=== PATIENT | male | born 1945 | race Caucasian/White ===

== ENCOUNTER 2020-12-14 00:40 | Inpatient (IN) ==
[2020-12-14] MEDS ORDERED: SODIUM CHLORIDE 0.9% 500 ML IV STA (01:10)
[2020-12-14] MEDS ORDERED: PANTOPRAZOLE 40 MG VIAL IV STA (01:10)
[2020-12-14] MEDS ORDERED: ONDANSETRON 4 MG/2 ML VIAL IV STA (01:10)
[2020-12-14 01:43] LABS: Basophils % 0.3 % (0.0-0.8); Eosinophils % 0.2 % (0.00-10.9); Hematocrit 32.7 VOL% (42.0-52.0); Hemoglobin 10.4 GM/DL (14.0-18.0); Immature Granulocytes % 0.8 %; Immature Granulocytes Absolute 0.08 #; Lymphocytes # 1.7 10*3/uL (1.4-4.0); Lymphocytes % 16.6 % (21.2-54.2); Mean Corpuscular HGB Conc 31.8 GM/DL (32-36); Mean Corpuscular Volume 92.6 FL (87-102); Mean Platelet Volume 10.2 FL (9.6-12.0); Monocytes % 4.1 % (1.7-12.7); Platelet Count 166 T/CUMM (130-400); Red Blood Count 3.53 MC/CUMM (3.8-5.5); Red Cell Distribution Width 13.2 % (9.3-17.3)
[2020-12-14 01:55] LABS: INR 1.1; PT Patient Result 11.7 SECS (9.8-11.9)
[2020-12-14 02:07] LABS: Bilirubin,Total 0.4 MG/DL (0.2-1.0); Calcium 8.3 MG/DL (8.5-10.1); Osmolality,Calculated 287.3 MOS/KG (273-304); Potassium 5.5 MMOL/L (3.5-5.1); Total Protein 5.2 G/DL (6.4-8.2)
[2020-12-14] MEDS ORDERED: GLUCAGON 1 MG VIAL IM PRN (03:51)
[2020-12-14] MEDS ORDERED: DEXTROSE 50% 25 GM/50 ML VIAL IV PRN (03:51)
[2020-12-14] MEDS ORDERED: ONDANSETRON 4 MG/2 ML VIAL IV PRN (03:51)
[2020-12-14] MEDS: PANTOPRAZOLE INJ 200 MG in SODIUM CHLORIDE 0.9% 250 ML IV SCH (04:46)
[2020-12-14] MEDS: SODIUM CHLORIDE 0.9% 1,000 ML IV SCH ×2 (07:00→15:19)
[2020-12-14 07:15] LABS: Hemoglobin 8.7 GM/DL (14.0-18.0)
[2020-12-14 07:26] LABS: INR 1.1; PT Patient Result 12.3 SECS (9.8-11.9); Partial Thromboplastin Time 23.3 SECS (23.9-33.8)
[2020-12-14 07:39] LABS: Osmolality,Calculated 292.3 MOS/KG (273-304); Potassium 5.5 MMOL/L (3.5-5.1)
[2020-12-14] MEDS: FINASTERIDE 5 MG TABLET PO SCH (09:25)
[2020-12-14] MEDS ORDERED: SODIUM CHLORIDE 0.9% 1,000 ML IV PRN ×2 (09:36→16:08)
[2020-12-14 10:00] LABS: Hemoglobin 8.5 GM/DL (14.0-18.0)
[2020-12-14] MEDS ORDERED: SODIUM CHLORIDE 0.9% 500 ML IV ONE (13:40)
[2020-12-14 13:57] LABS: Hematocrit 25.6 VOL% (42.0-52.0)
[2020-12-14] MEDS: GABAPENTIN 100 MG CAPSULE PO SCH ×2 (15:17→21:01)
[2020-12-14 16:16] LABS: Hematocrit 23.1 VOL% (42.0-52.0); Hemoglobin 7.6 GM/DL (14.0-18.0)
[2020-12-14] MEDS: ALBUTEROL 1.25 MG/3 ML NEB RESP TX PRN (17:45)
[2020-12-14] MEDS: BACLOFEN 10 MG TABLET PO SCH ×2 (17:55→21:00)
[2020-12-14] MEDS: TAMSULOSIN 0.4 MG CAPSULE PO SCH (21:00)
[2020-12-14] MEDS: FLUTICASONE 110 MCG/PUFF INHALER 12 GM INH SCH (21:00)
[2020-12-14] MEDS: rOPINIRole 1 MG TABLET PO SCH (21:01)
[2020-12-14 22:55] LABS: Hematocrit 23.2 VOL% (42.0-52.0); Hemoglobin 7.3 GM/DL (14.0-18.0)
[2020-12-15] MEDS: SODIUM CHLORIDE 0.9% 1,000 ML IV SCH ×4 (01:40→22:59)
[2020-12-15 04:19] LABS: PT Patient Result 11.4 SECS (9.8-11.9)
[2020-12-15] MEDS: PANTOPRAZOLE INJ 200 MG in SODIUM CHLORIDE 0.9% 250 ML IV SCH (07:11)
[2020-12-15 07:51] LABS: Hematocrit 23.8 VOL% (42.0-52.0); Hemoglobin 7.6 GM/DL (14.0-18.0)
[2020-12-15 08:29] LABS: Hematocrit 24.3 VOL% (42.0-52.0)
[2020-12-15 08:46] LABS: Calcium 8.1 MG/DL (8.5-10.1); Osmolality,Calculated 289.3 MOS/KG (273-304); Potassium 4.5 MMOL/L (3.5-5.1)
[2020-12-15] MEDS: LACTATED RINGERS 1,000 ML IV SCH (10:39)
[2020-12-15] MEDS: BACLOFEN 10 MG TABLET PO SCH ×4 (11:13→21:21)
[2020-12-15] MEDS: FINASTERIDE 5 MG TABLET PO SCH (11:13)
[2020-12-15] MEDS: ATORVASTATIN 40 MG TABLET PO SCH (11:13)
[2020-12-15] MEDS: GABAPENTIN 100 MG CAPSULE PO SCH ×3 (11:13→21:21)
[2020-12-15] MEDS: TAMSULOSIN 0.4 MG CAPSULE PO SCH ×2 (11:13→21:21)
[2020-12-15] MEDS: FLUTICASONE 110 MCG/PUFF INHALER 12 GM INH SCH ×2 (11:15→21:21)
[2020-12-15] MEDS ORDERED: LIDOCAINE 2% 5 ML VIAL ONE (11:42)
[2020-12-15] MEDS ORDERED: propofoL 200 MG/20 ML VIAL IV ONE ×3 (11:42→12:02)
[2020-12-15] MEDS ORDERED: EPINEPHrine 1 MG/ML VIAL ONE (12:23)
[2020-12-15 13:50] LABS: Hematocrit 25.2 VOL% (42.0-52.0)
[2020-12-15] MEDS: ALBUTEROL 1.25 MG/3 ML NEB RESP TX PRN (17:11)
[2020-12-15 19:58] LABS: Hemoglobin 7.4 GM/DL (14.0-18.0)
[2020-12-15] MEDS: rOPINIRole 1 MG TABLET PO SCH (21:21)
[2020-12-16 05:31] LABS: PT Patient Result 11.1 SECS (9.8-11.9)
[2020-12-16] MEDS: SODIUM CHLORIDE 0.9% 1,000 ML IV SCH ×2 (06:29→12:18)
[2020-12-16 07:18] LABS: Basophils % 0.2 % (0.0-0.8); Eosinophils # 0.1 10*3/uL (0.0-0.87); Eosinophils % 1.3 % (0.00-10.9); Hematocrit 22.2 VOL% (42.0-52.0); Hemoglobin 7.1 GM/DL (14.0-18.0); Immature Granulocytes % 0.8 %; Immature Granulocytes Absolute 0.07 #; Lymphocytes # 2.8 10*3/uL (1.4-4.0); Lymphocytes % 32.8 % (21.2-54.2); Mean Corpuscular Volume 92.1 FL (87-102); Mean Platelet Volume 10.9 FL (9.6-12.0); Monocytes % 7.3 % (1.7-12.7); Neutrophils % 57.6 % (38.7-73.9); Platelet Count 127 T/CUMM (130-400); Red Blood Count 2.41 MC/CUMM (3.8-5.5); Red Cell Distribution Width 15.9 % (9.3-17.3); White Blood Count 8.4 T/CUMM (4-12)
[2020-12-16 07:46] LABS: Albumin 2.9 G/DL (3.4-5.0); Bilirubin,Total 0.5 MG/DL (0.2-1.0); Calcium 8.1 MG/DL (8.5-10.1); Osmolality,Calculated 294.4 MOS/KG (273-304); Potassium 4.2 MMOL/L (3.5-5.1); Total Protein 5.1 G/DL (6.4-8.2)
[2020-12-16] MEDS: PANTOPRAZOLE 40 MG VIAL IV SCH ×2 (08:31→21:13)
[2020-12-16] MEDS: GABAPENTIN 100 MG CAPSULE PO SCH ×3 (08:32→21:13)
[2020-12-16] MEDS: TAMSULOSIN 0.4 MG CAPSULE PO SCH ×2 (08:32→21:12)
[2020-12-16] MEDS: BACLOFEN 10 MG TABLET PO SCH ×4 (08:32→21:13)
[2020-12-16] MEDS: ATORVASTATIN 40 MG TABLET PO SCH (08:32)
[2020-12-16] MEDS: FINASTERIDE 5 MG TABLET PO SCH (08:32)
[2020-12-16] MEDS: FLUTICASONE 110 MCG/PUFF INHALER 12 GM INH SCH ×2 (08:35→21:13)
[2020-12-16] MEDS: LACTATED RINGERS 1,000 ML IV SCH (08:36)
[2020-12-16] MEDS ORDERED: SODIUM CHLORIDE 0.9% 1,000 ML IV PRN (12:53)
[2020-12-16 14:28] LABS: Hematocrit 23.6 VOL% (42.0-52.0); Hemoglobin 7.8 GM/DL (14.0-18.0)
[2020-12-16] MEDS: PANTOPRAZOLE INJ 200 MG in SODIUM CHLORIDE 0.9% 250 ML IV SCH (15:24)
[2020-12-16] MEDS: rOPINIRole 1 MG TABLET PO SCH (21:12)
[2020-12-16] MEDS: CETIRIZINE 10 MG TABLET PO SCH (23:06)
[2020-12-16 23:10] LABS: Hematocrit 25.6 VOL% (42.0-52.0)
[2020-12-16 23:13] LABS: Hemoglobin 8.2 GM/DL (14.0-18.0)
[2020-12-17 05:32] LABS: Basophils % 0.3 % (0.0-0.8); Eosinophils # 0.2 10*3/uL (0.0-0.87); Eosinophils % 2.4 % (0.00-10.9); Hematocrit 27.1 VOL% (42.0-52.0); Hemoglobin 8.5 GM/DL (14.0-18.0); Immature Granulocytes % 1.3 %; Immature Granulocytes Absolute 0.08 #; Lymphocytes # 2.4 10*3/uL (1.4-4.0); Lymphocytes % 37.7 % (21.2-54.2); Mean Corpuscular HGB Conc 31.4 GM/DL (32-36); Mean Corpuscular Volume 94.4 FL (87-102); Mean Platelet Volume 10.8 FL (9.6-12.0); Monocytes % 7.7 % (1.7-12.7); NRBC # 0.03 10*3/uL; Neutrophils % 50.6 % (38.7-73.9); Platelet Count 127 T/CUMM (130-400); Red Blood Count 2.87 MC/CUMM (3.8-5.5); White Blood Count 6.2 T/CUMM (4-12)
[2020-12-17 05:59] LABS: Calcium 8.3 MG/DL (8.5-10.1); Potassium 3.9 MMOL/L (3.5-5.1)
[2020-12-17] MEDS: TAMSULOSIN 0.4 MG CAPSULE PO SCH (08:48)
[2020-12-17] MEDS: PANTOPRAZOLE 40 MG VIAL IV SCH (08:53)
[2020-12-17] MEDS: CETIRIZINE 10 MG TABLET PO SCH (08:54)
[2020-12-17] MEDS: FLUTICASONE 110 MCG/PUFF INHALER 12 GM INH SCH (09:48)
[2020-12-17] MEDS: BACLOFEN 10 MG TABLET PO SCH (09:49)
[2020-12-17] MEDS: ATORVASTATIN 40 MG TABLET PO SCH (09:52)
[2020-12-17] MEDS: GABAPENTIN 100 MG CAPSULE PO SCH (09:53)
[2020-12-17] MEDS: FINASTERIDE 5 MG TABLET PO SCH (09:53)
[2020-12-17] MEDS: LACTATED RINGERS 1,000 ML IV SCH (10:47)
[2020-12-17 11:36] VITALS: BP 144/68
== END 2020-12-17 13:02 | disposition home or self-care (01) | DRG 378 ==
LOC: EDUNIT# → EDBD → N.ED 00:40 → N.EDINP 00:40 → N.3E 05:13 → SUATTDRO 07:45
PROVIDERS: ADMIT Internal Medicine; ATTEND Hospitalist